=== PATIENT | female | born 1950 | race Caucasian/White ===

== ENCOUNTER → 2020-11-17 | Outpatient (CLI) | payer MEDICARE, OTHER ==
[~2020-11-17] MED LIST: ASPIRIN 81M81 MG/TA2 PO; ZESTRIL 20MG TA20 MG PO
== END ==
LOC: MC.RAD 11-16 13:30
DX: Z12.31 Encounter for screening mammogram for malignant neoplasm of breast (principal)

== ENCOUNTER 2021-02-09 09:24 | Day surgery (SDC) | payer MEDICARE, OTHER ==
[~2021-02-09] VITALS: Ht 162.6 cm; Wt 86.6 kg
[2021-02-09] MEDS ORDERED: ZESTRIL 20MG TA20 MG PO (10:03)
[2021-02-09] MEDS ORDERED: ASPIRIN 81M81 MG/TA2 PO (10:04)
[2021-02-09 10:08] VITALS: BP 139/89; PULSE 64; TEMP 97
[2021-02-09 11:45] VITALS: BP 125/77; PULSE 51; TEMP 97.1
[2021-02-09 12:00] VITALS: BP 140/79; PULSE 52
[2021-02-09 12:15] VITALS: BP 149/80; PULSE 50
--- NOTE | 2021-02-09 12:35 | NUR ---
1145 Pt returns from endo procedure via cart and RN assist to [facility]. Pt ambulates from cart to recliner with RN assist. Monitors on and alarms set. Call light within reach. Report received from GABY Cho. Pt alert and oriented. Pt requests muffin and juice. Pt denies any pain or nausea. 1205 Pt taking food and drink well. No complications noted. 1210 Discharge instructions given to pt. All questions answered to her satisfaction. Handed to pt are a thank you card and discharge information. 1235 Pt transferred out of the hospital via wheelchair and this RN assist, to private vehicle driven by .
== END 2021-02-09 12:35 | disposition home or self-care (01) ==
LOC: SDCO 09:24
DX: Z12.11 Encounter for screening for malignant neoplasm of colon (principal); K63.5 Polyp of colon; I10 Essential (primary) hypertension; M19.90 Unspecified osteoarthritis, unspecified site; G47.33 Obstructive sleep apnea (adult) (pediatric); E78.5 Hyperlipidemia, unspecified; E55.9 Vitamin D deficiency, unspecified; E66.9 Obesity, unspecified; M85.80 Other specified disorders of bone density and structure, unspecified site; Z79.899 Other long term (current) drug therapy; Z80.0 Family history of malignant neoplasm of digestive organs
CPT/HCPCS: J2704

== ENCOUNTER → 2021-12-19 | Outpatient (CLI) | payer MEDICARE, OTHER | LOC: MC.RAD 12:50 | DX: Z12.31 Encounter for screening mammogram for malignant neoplasm of breast (principal); Z80.3 Family history of malignant neoplasm of breast ==